=== PATIENT | male | born 1990 | race African-American/Black ===

== ENCOUNTER 2018-08-22 08:59 | Emergency (ER) | payer OTHER ==
[~2018-08-22] VITALS: Ht 162.6 cm; Wt 54.4 kg
[2018-08-22 09:10] VITALS: BP 132/78
--- NOTE | 2018-08-22 09:24 | PHYS DOC ---
Past Medical History Past Medical History: No Pertinent History Past Surgical History: No Surgical History Alcohol Use: Occasionally Drug Use: Marijuana Adult General Chief Complaint Chief Complaint: SEXUALLY TRANSMITTED DISEASE HPI HPI Patient is a 28 year old male presenting with discharge from his penis he would like to be just for STDs no other symptoms no fever no abdominal pain Allergies Allergies Allergies Coded Allergies Type Severity Reaction Last Updated Verified No Known Drug Allergies 08/22/18 No Physical Exam Physical Exam Constitutional: Well developed, well nourished, no acute distress, non-toxic appearance. [] HENT: Normocephalic, atraumatic, bilateral external ears normal, oropharynx moist, no oral exudates, nose normal. [] Pulmonary: Normal respiratory effort no increased work of breathing no obvious chest wall trauma Abdomen: Bowel sounds normal, soft, no tenderness, no masses, no pulsatile masses. [] Skin: Warm, dry, no erythema, no rash. [] Extremities: No tenderness, no cyanosis, no clubbing, ROM intact, no edema. [] Neurologic: Alert and oriented X 3, normal motor function, normal sensory function, no focal deficits noted. [] Psychologic: Affect normal, judgement normal, mood normal. [] Current Patient Data Vital Signs Vital Signs Date Time Temp Pulse Resp B/P (MAP) Pulse Ox O2 Delivery O2 Flow Rate FiO2 08/22/18 09:10 98.5 94 16 132/78 (96) 99 Room Air 98.5 EKG EKG [] Radiology/Procedures Radiology/Procedures [] Course & Med Decision Making Course & Med Decision Making Pertinent Labs and Imaging studies reviewed. (See chart for details) Likely urethritis ceftriaxone and azithromycin were given and counseled on safe sex precautions Dragon Disclaimer Dragon Disclaimer This electronic medical record was generated, in whole or in part, using a voice recognition dictation system. Departure Departure Impression: Primary Impression: Sexually transmitted disease Disposition: HOME, SELF-CARE Condition: IMPROVED Referrals: VENKATESH MARIE MD (PCP) Patient Instructions: Sexually Transmitted Disease, [id number] SCOUT MADRIGAL MD Aug 22, 2018 09:24
[2018-08-22] MEDS ORDERED: cefTRIAXone IM 1 GM VIAL IM ONE (09:30)
[2018-08-22] MEDS ORDERED: AZITHROMYCIN 250 MG TABLET. PO ONE (09:30)
[2018-08-22] MEDS ORDERED: 0.9 % SOD CHL for STERILE FIELD 10 ML DISP.SYRIN. ONE (09:35)
--- NOTE | 2018-08-25 08:40 | VNOTE ---
CALL BACK NOTE CALL BACK Patient is positive for gonorrhea, he was treated. Results given. Education provided JENNIFER BARRON APRN Aug 25, 2018 08:40
== END 2018-08-22 09:52 | disposition home or self-care (01) ==
LOC: ER 08:59
DX: A64 Unspecified sexually transmitted disease (principal)
CPT/HCPCS: 87491; 87591; 96372; 99284; J0696; Q0144